=== PATIENT | male | born 1950 | race Caucasian/White ===

== ENCOUNTER → 2017-01-23 | Outpatient (CLI) | payer OTHER ==
[~2017-01-23] VITALS: Ht 172.7 cm; Wt 90.7 kg
[~2017-01-23] MED LIST: ALEVE220 M2 PO; ASPIRIN EC325 MG PO; BENICAR20 MG PO; ENDOCET 5-3251 EACH PO; GABAPENTIN800 MG PO; HYZAAR 100-11 TABLET PO; LO-DOSE ASPIRIN81 M2 PO; LYRICA75 MG PO; NAPROSYN500 MG PO; NEURONTIN600 MG PO; NOHOMEMEDS; OXYCODONE HCL5 MG PO; PANTOPRAZOLE SO40 MG PO; PROTONIX40 MG PO
[2017-01-23 09:31] LABS: POINT-OF-CARE METER ID UU14174212
== END | disposition home or self-care (01) ==
LOC: AMB 08:52
PROVIDERS: Internal Medicine
PROC: 0DJD8ZZ Inspection of Lower Intestinal Tract, Via Natural or Artificial Opening Endoscopic (ICD-10-PCS; principal; 2017-01-23)
DX: Z48.3 Aftercare following surgery for neoplasm (principal); Z85.038 Personal history of other malignant neoplasm of large intestine; Z90.49 Acquired absence of other specified parts of digestive tract; K57.90 Diverticulosis of intestine, part unspecified, without perforation or abscess without bleeding; Z79.82 Long term (current) use of aspirin; Z87.891 Personal history of nicotine dependence; Z88.2 Allergy status to sulfonamides
CPT/HCPCS: 82948